=== PATIENT | male | born 1970 | race Caucasian/White ===

== ENCOUNTER 2018-04-07 21:31 | Emergency (ER) | payer SELFPAY ==
[~2018-04-07] VITALS: Ht 177.8 cm; Wt 77.0 kg
[2018-04-07] MEDS ORDERED: IBUPROFEN 600MG TABLET PO ONE (23:00)
[2018-04-08 00:11] VITALS: BP 108/68
== END 2018-04-08 00:15 | disposition home or self-care (01) ==
LOC: ER 21:31
DX: S46.911A Strain of unspecified muscle, fascia and tendon at shoulder and upper arm level, right arm, initial encounter (principal); F17.200 Nicotine dependence, unspecified, uncomplicated; Z59.0 Homelessness; Z98.890 Other specified postprocedural states; Z87.828 Personal history of other (healed) physical injury and trauma; X58.XXXA Exposure to other specified factors, initial encounter; Y93.89 Activity, other specified; Y92.89 Other specified places as the place of occurrence of the external cause
CPT/HCPCS: 73030; 99283

== ENCOUNTER 2018-08-30 19:14 | Emergency (ER) | payer OTHER ==
[~2018-08-30] VITALS: Ht 177.8 cm; Wt 75.4 kg
[2018-08-30 20:20] VITALS: BP 122/76
== END 2018-08-31 01:35 | disposition left against medical advice (07) ==
LOC: ER 19:14
DX: F10.129 Alcohol abuse with intoxication, unspecified (principal); Y90.0 Blood alcohol level of less than 20 mg/100 ml; Z53.21 Procedure and treatment not carried out due to patient leaving prior to being seen by health care provider

== ENCOUNTER 2018-08-31 04:27 | Emergency (ER) | payer OTHER ==
[~2018-08-31] VITALS: Ht 177.8 cm; Wt 75.4 kg
[2018-08-31 05:14] LABS: EOSINOPHILS % 4.8 % (0.0-5.0); HEMATOCRIT. 42.7 % (42.0-52.0); HEMOGLOBIN. 14.7 g/dL (14.0-18.0); LYMPHOCYTES % 16.7 % (20.0-50.0); MEAN CORPUSCULAR HEMOGLOBIN 32.9 pg (28.0-32.0); MEAN CORPUSCULAR VOLUME 95.4 fL (80.0-94.0); MONOCYTES % 11.5 % (2.0-8.0); PLATELET 243 x1000/uL (130-400); RED BLOOD CELL COUNT 4.48 mill/uL (4.7-6.1); RED CELL DISTRIBUTION WIDTH 14.1 % (11.6-14.6)
[2018-08-31 05:21] LABS: CHLORIDE 107 mEq/L (98-107)
[2018-08-31 05:24] LABS: ETHANOL BLOOD < 10 mg/dL
[2018-08-31] MEDS ORDERED: IBUPROFEN 600MG TABLET PO ONE (06:30)
[2018-08-31] MEDS ORDERED: CHLORDIAZEPOXIDE 25MG CAPSULE PO ONE (06:30)
[2018-08-31 09:41] VITALS: BP 118/70
== END 2018-08-31 09:49 | disposition home or self-care (01) ==
LOC: ER 04:27
DX: F10.239 Alcohol dependence with withdrawal, unspecified (principal); Y90.0 Blood alcohol level of less than 20 mg/100 ml; F12.10 Cannabis abuse, uncomplicated; F41.9 Anxiety disorder, unspecified
CPT/HCPCS: 36415; 80053; 80320; 85025; 93005; 99283; Z7610; G0480

== ENCOUNTER 2019-02-18 09:39 | Emergency (ER) | payer OTHER ==
[~2019-02-18] VITALS: Ht 177.8 cm; Wt 73.0 kg
[2019-02-18 09:58] VITALS: BP 109/80
== END 2019-02-18 11:28 | disposition home or self-care (01) ==
LOC: ER 09:39
DX: S60.351A Superficial foreign body of right thumb, initial encounter (principal); F41.9 Anxiety disorder, unspecified; F12.10 Cannabis abuse, uncomplicated; X58.XXXA Exposure to other specified factors, initial encounter; Y93.89 Activity, other specified; Y92.017 Garden or yard in single-family (private) house as the place of occurrence of the external cause; Y99.8 Other external cause status
CPT/HCPCS: 99284